=== PATIENT | female | born 1955 | race Caucasian/White ===

== ENCOUNTER → 2016-10-08 | Outpatient (CLI) | payer OTHER ==
[~2016-10-08] MED LIST: CHOL2000 PO; FEXO1TAB46 PO; THY/60 PO; THYR15TA PO
[2016-10-08 08:28] LABS: CHOLESTEROL/HDL RATIO 4.5
[2016-10-08 08:39] LABS: URINE APPEARANCE CLEAR (CLEAR); URINE BILIRUBIN NEG (NEG); URINE COLOR YELLOW; URINE EPITHELIAL CELL AUTO 20-30 /lpf (0-5); URINE NITRITE NEG (NEG); URINE PH 5.5 (4.5-7.5); URINE SPECIFIC GRAVITY 1.017 (1.000-1.030); UROBILINOGEN NEG (NEG); ZZUR CULT IF INDIC CLEAN CATCH NO
[2016-10-08 08:47] LABS: MANUAL MICROSCOPIC REQUIRED? NO; REVIEW REQ? NO
== END | disposition home or self-care (01) ==
LOC: C.LAB 06:54
PROVIDERS: ATTEND Internal Medicine Endocrinology, Diabetes & Metabolism
DX: R53.83 Other fatigue (principal); E03.9 Hypothyroidism, unspecified; N95.1 Menopausal and female climacteric states; E55.9 Vitamin D deficiency, unspecified; R31.29 Other microscopic hematuria; N85.2 Hypertrophy of uterus; E78.5 Hyperlipidemia, unspecified

== ENCOUNTER → 2017-02-18 | Outpatient (CLI) | payer OTHER ==
[2017-02-18 09:03] LABS: THYROID STIMULATING HORMONE < 0.005 uIu/ml (0.300-4.500)
== END | disposition home or self-care (01) ==
LOC: C.LAB 07:10
PROVIDERS: ATTEND Internal Medicine Endocrinology, Diabetes & Metabolism
DX: R53.83 Other fatigue (principal); E03.9 Hypothyroidism, unspecified; N95.1 Menopausal and female climacteric states; E55.9 Vitamin D deficiency, unspecified

== ENCOUNTER → 2017-03-03 | Outpatient (CLI) | payer OTHER | END | disposition home or self-care (01) | LOC: C.PATH 13:51 | PROVIDERS: ATTEND Dentist Endodontics | DX: K04.7 Periapical abscess without sinus (principal) ==

== ENCOUNTER → 2017-04-13 | Outpatient (CLI) | payer OTHER | END | disposition home or self-care (01) | LOC: C.PAPS 15:49 | PROVIDERS: ATTEND Obstetrics & Gynecology | DX: Z12.4 Encounter for screening for malignant neoplasm of cervix (principal); Z11.51 Encounter for screening for human papillomavirus (HPV) ==

== ENCOUNTER → 2017-05-09 | Outpatient (CLI) | payer OTHER ==
--- NOTE | 2017-05-09 16:38 | DIAGNOSTIC IMAGING REPORT ---
L-SPINE MIN 4 VIEWS ROUTINE HISTORY: Pain DISC Degeneration, lumbar COMPARISON: None. FINDINGS: There is no fracture. Minimal grade 1 anterolisthesis of L4 on L5. Minimal degenerative disc change throughout. Posterior elements are intact. Very slight S-shaped scoliosis. IMPRESSION: Minimal degenerative change throughout the entire lumbar region. Grade 1 anterolisthesis L4 on L5 also be secondary to degenerative change posterior elements. No acute process. The above report was generated using voice recognition software. It may contain grammatical, syntax or spelling errors. Electronically signed by: Maximilian Minor M.D. 05/09/2017 4:36 PM Dictated Date/Time: 05/09/2017 4:35 PM
== END | disposition home or self-care (01) ==
LOC: C.RAD1850 16:11
PROVIDERS: ATTEND Internal Medicine
DX: M51.36 Other intervertebral disc degeneration, lumbar region (principal); M43.16 Spondylolisthesis, lumbar region

== ENCOUNTER → 2017-05-24 | Outpatient (CLI) | payer OTHER ==
--- NOTE | 2017-05-24 09:15 | DIAGNOSTIC IMAGING REPORT ---
LUMBAR SPINE W/O CONTRAST CLINICAL HISTORY: 62 years-old Female presenting with disc degeneration in the lumbar spine, lumbar reticular the, no history of cancer, prior kyphoplasty of L2-L5 last year, numbness down the right leg. TECHNIQUE: Multisequence, multiplanar MR imaging of the lumbar spine was performed without the use of intravenous contrast. IV contrast: None. COMPARISON: 02/12/2016. FINDINGS: Localizer images: Unremarkable. Slight straightening of normal lumbar lordosis as on prior exam. 2 to 3 mm of grade 1 anterolisthesis of L4 on L5 unchanged. Remainder of vertebral bodies demonstrate normal height, alignment, and bone marrow signal intensity. Intervertebral disc spaces preserved. Minimal disc bulges noted from L2-3 through L5-S1. Facet arthropathy present at L4-5 and L5-S1. In combination with ligamentum flavum hypertrophy circumferential narrowing of the spinal canal at L4-5 with near complete effacement of the CSF is noted. Mild neural foraminal narrowing may also be present at L4-5, right greater than left. Nonsignificant neural foraminal narrowing at the remaining levels. Spinal cord ends in good position at the inferior endplate of L1. Cauda equina inferior to L4-5 has somewhat of a buckled appearance. Paraspinal soft tissues normal. No epidural collection. IMPRESSION: Mild multilevel degenerative changes most severe at L4-5 in part due to grade 1 anterolisthesis of L4 on L5. This results in near complete effacement of the CSF with suggestion of impingement of the cauda equina. Mild neural foraminal narrowing at L4-5, right greater than left. The report will be called/faxed according to standard departmental protocol. Electronically signed by: Scar Patterson M.D. 05/24/2017 9:14 AM Dictated Date/Time: 05/24/2017 9:10 AM
== END | disposition home or self-care (01) ==
LOC: C.MRI 07:49
PROVIDERS: ATTEND Internal Medicine
DX: M51.36 Other intervertebral disc degeneration, lumbar region (principal); M48.00 Spinal stenosis, site unspecified; M54.16 Radiculopathy, lumbar region; R20.0 Anesthesia of skin; Z98.890 Other specified postprocedural states

== ENCOUNTER → 2017-07-01 | Outpatient (CLI) | payer OTHER ==
[2017-07-01 07:44] LABS: GLUCOSE,FASTING 108 mg/dl (70-99)
[2017-07-01 07:58] LABS: CHOLESTEROL 188 mg/dl (0-200); CHOLESTEROL/HDL RATIO 3.9; HDL CHOLESTEROL 48 mg/dl; LDL CHOLESTEROL CALCULATED 105 mg/dl; THYROID STIMULATING HORMONE < 0.005 uIu/ml (0.300-4.500); TRIGLYCERIDES 175 mg/dl (0-150); VERY LOW DENSITY LIPOPROT CALC 35 mg/dl
== END | disposition home or self-care (01) ==
LOC: C.LAB 06:44
PROVIDERS: ATTEND Internal Medicine Endocrinology, Diabetes & Metabolism
DX: E03.9 Hypothyroidism, unspecified (principal); E78.5 Hyperlipidemia, unspecified; R53.83 Other fatigue; N95.1 Menopausal and female climacteric states; E55.9 Vitamin D deficiency, unspecified